=== PATIENT | male | born 1995 | race Caucasian/White ===

== ENCOUNTER 2016-09-14 10:09 | Emergency (ER) | payer OTHER ==
[~2016-09-14] VITALS: Ht 165.1 cm; Wt 86.4 kg
[2016-09-14 12:48] VITALS: BP 125/76
== END 2016-09-14 12:49 | disposition home or self-care (01) ==
LOC: EMS 10:12
DX: S67.22XA Crushing injury of left hand, initial encounter (principal); S67.191A Crushing injury of left index finger, initial encounter; S67.193A Crushing injury of left middle finger, initial encounter; S67.195A Crushing injury of left ring finger, initial encounter; W20.8XXA Other cause of strike by thrown, projected or falling object, initial encounter; Y93.89 Activity, other specified; Y92.89 Other specified places as the place of occurrence of the external cause; Y99.8 Other external cause status
CPT/HCPCS: 99284

== ENCOUNTER 2016-09-17 13:53 | Emergency (ER) | payer SELFPAY ==
[~2016-09-17] VITALS: Ht 165.1 cm; Wt 86.4 kg
[2016-09-17 13:58] VITALS: BP 144/72
== END 2016-09-17 17:36 | disposition left against medical advice (07) ==
LOC: EMS 13:54
DX: Z00.8 Encounter for other general examination (principal); Z53.21 Procedure and treatment not carried out due to patient leaving prior to being seen by health care provider